=== PATIENT | female | born 1995 | race Hispanic/Latino ===

== ENCOUNTER 2017-11-22 02:36 | Day surgery (SDC) | payer OTHER, SELFPAY ==
[2017-11-22 03:10] VITALS: BP 106/62; TEMP 98.3; BMI 35.0
[2017-11-22 04:16] LABS: Bilirubin Negative (Negative); Blood, Urine Small (Negative); Clarity CLEAR (Clear); Glucose, Urine (Dipstick) Negative (Negative); Leukocyte Negative (Negative); Nitrite Negative (Negative); Protein, Urine (Dipstick) Negative (Neg-Trace); Urobilinogen 0.2 mg/dL (0.2-1.0)
[2017-11-22 04:19] LABS: Bacteria/HPF None Seen HPF (None Seen); Hyaline Casts/LPF 4-6 HYALINE CAST LPF (0-3 Hyaline); Pathc Cast-AUWi Flag 0.81 (0-2.49); Squamous Epithelial 0-3 HPF (0-3); WBC/HPF 0-3 HPF (0-3)
--- NOTE | 2017-11-22 05:10 | SS ---
OB OBSERVATION NOTE DATE OF EVALUATION: 11/22/2017 NORMAL PROVIDER: Anna Eckert, certified nurse authorization representative. CHIEF COMPLAINT: Pelvic pressure, vaginal discomfort. HISTORY OF PRESENT ILLNESS: Ms. Goodson is a 22-year-old G2, P1 estimated date of confine ment 03/05/2018 who presents to labor and delivery early this morning complaining of lower diffuse pe lvic discomfort and the possibility of vaginal discharge. She denies vaginal bleeding. She denies s ustained contractions. She also denies nausea, vomiting, fever or chills. PAST OBSTETRICAL HISTORY: She is currently being cared for by Anna Eckert at [facility]. She reports that her care has been uncomplicated. She has had 1 vaginal delivery at term of a 7-pound 9-ounce baby. PAST MEDICAL HISTORY: Unremarkable. PAST SURGICAL HISTORY: None. SOCIAL HISTORY: Denies tobacco, alcohol, or drug use. ALLERGIES: None. REVIEW OF SYSTEMS: Denies nausea, vomiting, fever or chills. Denies vaginal bleeding. PHYSICAL EXAMINATION: VITAL SIGNS: Stable and she is afebrile. ABDOMEN: Soft and nontender. The fundus extends above the umbilicus and is nontender. Sterile speculum exam is performed and there is a copious discharge consistent with yeast. No blood or amniotic fluid is seen. Sterile vaginal exam shows the cervix to be closed, thickened with the pr esenting part high. heart rate tracing is reassuring with no evidence of decelerations. No co ntractions are seen. LABORATORY DATA: Urinalysis returns with no bacteria on a catheterized specimen. ASSESSMENT: 1. A 25-week intrauterine . 2. No evidence of labor or urinary tract infection. 3. Suspected yeast vaginitis. PLAN: At this time, we will allow the patient to go home and she will rest and continue to hydrate t here. I have asked her to call the clinic and speak with her provider in the morning. I provided a prescription for Diflucan for her to use and she has 1 refill there. She was given complete labor precautions in detail and she voiced understanding of her discharge instructions and was sent h ome in good condition.
== END 2017-11-22 04:30 | disposition home or self-care (01) ==
LOC: L&D/OP 02:36
PROVIDERS: ATTEND Advanced Practice Midwife
DX: O99.89 Other specified diseases and conditions complicating pregnancy, childbirth and the puerperium (principal); R10.2 Pelvic and perineal pain
CPT/HCPCS: 81001

== ENCOUNTER 2017-12-03 16:54 | Emergency (ER) | payer SELFPAY ==
[~2017-12-03 16:54] MED LIST: ISOVUE-370 76%-LOCM 1 ML ONE
[2017-12-03 17:27] LABS: #Eosinphils 0.1 thou/uL (0.0-0.7); #Lymphocytes 1.1 thou/uL (1.20-3.40); #Monocytes 1.2 thou/uL (0.11-0.59); #Neutrophils 9.6 thou/uL (1.40-6.50); %Basophils 0.3 % (0.0-1.0); %Eosinophils 1.2 % (0.0-10.0); %Lymphocytes 9.4 % (21.0-51.0); %Monocytes 9.9 % (0.0-10.0); %Neutrophils 79.2 % (42.0-75.0); Hemoglobin 11.4 g/dL (12.0-16.0); Mean Corpuscular HGB CONC 33.3 g/dL (32.0-36.0); Mean Corpuscular Hemoglobin 28.3 pg (27.0-31.0); Mean Corpuscular Volume 84.8 fl (81.0-99.0); Mean Platelet Volume 7.6 fL (7.4-10.4); Platelet Count 233 thou/uL (130-400); RBC Distribution Width 11.5 % (11.5-14.5); Red Blood Cell (RBC) Count 4.03 mill/uL (4.20-5.40); White Blood Cell (WBC) Count 12.1 thou/uL (4.8-10.8)
[2017-12-03 17:56] LABS: Anion Gap 11 mmol/L (10-20); BUN (Urea Nitrogen) 6 mg/dL (7.0-18.7); Calc. Creatinine Clearance 0 mL/min (70-130); Calcium 9.2 mg/dL (7.8-10.44); Carbon Dioxide 21 mmol/L (22-29); Chloride 108 mmol/L (98-107); Estimated GFR-MDRD Greater than 90; Glucose 110 mg/dL (70-105); Potassium 3.7 mmol/L (3.5-5.1); Sodium 136 mmol/L (136-145)
[2017-12-03] MEDS ORDERED: Acetaminophen 325 MG TAB ONE (18:03)
[2017-12-03 18:46] LABS: Bilirubin Negative (Negative); Blood, Urine Negative (Negative); Clarity TURBID (Clear); Glucose, Urine (Dipstick) Negative (Negative); Leukocyte Negative (Negative); Nitrite Negative (Negative); Protein, Urine (Dipstick) Negative (Neg-Trace); Specific Gravity, Urine 1.016 (1.002-1.036); Urobilinogen 0.2 mg/dL (0.2-1.0); pH, Urine 7.5 (5.0-9.0)
--- NOTE | 2017-12-03 20:45 | CT ---
CT ANGIOGRAM THORAX WITH IV CONTRAST AND 3D RECONSTRUCTIONS: 12/03/17 HISTORY: Cough and racing heart. Headache. Patient is 23 weeks . Positive bodyaches. FINDINGS: There is suboptimal timing of the contrast bolus which limits evaluation of the pulmonary arteries. H owever, there is no definite filling defects seen within the central or segmental pulmonary arteries although there is limited evaluation of the subsegmental pulmonary arteries. Thoracic aorta is normal in caliber without evidence of an aortic dissection. Residual thymus is seen within the anterior sup erior mediastinum. The lungs are clear. The most posterior lung bases are excluded from view. There is no evidence of lymphadenopathy. Limited visualized upper abdomen has a normal CT appearance. IMPRESSION: Limited exam due to suboptimal timing of the contrast bolus, but no definite pulmonary embolus is see n involving the central or segmental pulmonary arteries. Again, the subsegmental pulmonary arteries a re not well opacified. POS: [facility]
== END 2017-12-03 21:23 | disposition home or self-care (01) ==
LOC: ERS 16:54
DX: R00.0 Tachycardia, unspecified (principal); R05 Cough
CPT/HCPCS: 59025; 71275; 80048; 81003; 85025; 85379; 87081; 87430; 93005; 96360; 96361

== ENCOUNTER 2018-02-11 19:11 | Day surgery (SDC) | payer OTHER ==
[2018-02-11 19:48] VITALS: BMI 37.2
[2018-02-11] MEDS ORDERED: Albuterol Sulfate 2.5 mg/3 ml Neb NEB SCH (20:30)
[2018-02-11 21:39] LABS: #Eosinphils 0.2 thou/uL (0.0-0.7); #Monocytes 0.9 thou/uL (0.11-0.59); #Neutrophils 10.1 thou/uL (1.40-6.50); %Basophils 0.3 % (0.0-1.0); %Eosinophils 1.5 % (0.0-10.0); %Lymphocytes 21.1 % (21.0-51.0); %Monocytes 6.5 % (0.0-10.0); %Neutrophils 70.6 % (42.0-75.0); Hemoglobin 11.6 g/dL (12.0-16.0); Mean Corpuscular HGB CONC 34.7 g/dL (32.0-36.0); Mean Corpuscular Hemoglobin 28.5 pg (27.0-31.0); Mean Corpuscular Volume 82.2 fl (81.0-99.0); Mean Platelet Volume 7.3 fL (7.4-10.4); Platelet Count 268 thou/uL (130-400); RBC Distribution Width 12.6 % (11.5-14.5); Red Blood Cell (RBC) Count 4.07 mill/uL (4.20-5.40); White Blood Cell (WBC) Count 14.3 thou/uL (4.8-10.8)
--- NOTE | 2018-02-11 22:37 | RAD ---
CHEST TWO VIEWS: 02/11/18 COMPARISON: 01/16/16. HISTORY: Shortness of breath. FINDINGS: Normal cardiac silhouette. The lungs and pleural spaces are clear. No pneumothorax or osseous abnorma lity. IMPRESSION: No acute cardiopulmonary process. POS: [facility]
--- NOTE | 2018-02-12 00:40 | PRG ---
DATE OF SERVICE: 02/11/2018 PRIMARY OB: Ms. Anna Eckert. CHIEF COMPLAINT: Abdominal pain. HISTORY OF PRESENT ILLNESS: The patient is a 22-year-old female with an intrauterine at 36 weeks who presents today with pelvic pain that she has been experiencing throughout the day. She reports that the pain is sharp and worse with movement and activity. She also reports that she w as last checked at her last clinical exam, she was 1 cm dilated. The patient's next appointment is s idris for Saturday. The patient reports that she has some shortness of breath for the last couple o f weeks. She has also had a bad cough for the last couple of weeks, she says primarily dry, but at t imes has phlegmy discharge or exudate or sputum. The patient reports she has been having sinus press ure, believes that allergies have been a source of this condition. She also reports she has had a lo t of sick contacts in her family who are having similar symptoms. PAST MEDICAL HISTORY: Migraines and depression. PAST OBSTETRIC HISTORY: She had a vaginal complicated by hemorrhage. SOCIAL HISTORY: Denies drug, alcohol or tobacco use. PAST SURGICAL HISTORY: Had wisdom teeth removed. ALLERGIES: No known drug allergies. MEDICATIONS: vitamins. OB LABS: Blood type is O positive, antibody screen is negative, HIV is nonreactive in the first and third trimester. RPR is nonreactive in the first and third trimester. Hepatitis B surface antigen i s nonreactive. One-hour Glucola is within normal limits. She is rubella immune. Her one-hour gluco se tolerance test is 97. GBS is positive. REVIEW OF SYSTEMS: Per HPI. PHYSICAL EXAMINATION: VITAL SIGNS: Blood pressure 116/63, heart rate of 103. Satting 93-98% on room air, temperature 98.8 . GENERAL: She appears to be in no acute distress; however, she does have a cough. She is alert and o riented, cooperative and pleasant to interact with. HEENT: Head is normocephalic, atraumatic. LUNGS: Clear to auscultation bilaterally. HEART: Regular rate and rhythm. ABDOMEN: Tender to deviate to manual deviation consistent with musculoskeletal ligament pains and co nsistent with her chief complaint. EXTREMITIES: Nontender, nonedematous. GENITOURINARY: Cervical exam is unchanged from her clinic visit last Saturday. Her last week at 1 75% , -2 station. heart tracing performed and noted to be in the 140s with moderate long-term variability, positi ve accelerations, no decelerations. Tocometer shows possible irritability, but no contraction patter n. LABORATORY DATA: CBC shows a white count of 14.3, hemoglobin 11.6, hematocrit 33.5, platelets of 265 ,000. Chest x-ray is within normal limits. ASSESSMENT AND PLAN: The patient is a 22-year-old female with a 2-week history of severe cough with unexpectedly low transient O2 sats. She did get an albuterol nebulizer treatment that did not seem t o have much effect. Objectively though the patient reports she feels that she can breathe a little b yudelka. X-rays within normal limits and her white count, although slightly elevated at 14, has no lef t shift. Fetus has a reactive NST and overall reassuring. The patient has had significant sick cont acts at the house given the patient's proximity to delivery and chronic longstanding cough and sinus pressure. I have opted to prescribe the patient azithromycin for the next 5 days. She has been coun seled to see Anna Tomeka this week and has an appointment on Saturday. This patient is being di scharged to home.
== END 2018-02-11 23:08 | disposition home or self-care (01) ==
LOC: L&D/OP 19:11
PROVIDERS: ATTEND Advanced Practice Midwife
DX: O99.89 Other specified diseases and conditions complicating pregnancy, childbirth and the puerperium (principal); R10.2 Pelvic and perineal pain; O99.343 Other mental disorders complicating pregnancy, third trimester; F32.9 Major depressive disorder, single episode, unspecified; O99.353 Diseases of the nervous system complicating pregnancy, third trimester; G43.909 Migraine, unspecified, not intractable, without status migrainosus; Z3A.36 36 weeks gestation of pregnancy; Z79.899 Other long term (current) drug therapy
CPT/HCPCS: 36415; 71046; 85025; 94640; 99283

== ENCOUNTER → 2018-02-14 | Day surgery (SDC) | payer OTHER ==
[2018-02-14 13:26] VITALS: BMI 37.2
--- NOTE | 2018-02-14 14:14 | SS ---
DATE OF SERVICE: 02/14/2018 REGULAR OB PROVIDER: Anna Eckert certified nurse dental nurse. EVALUATING PHYSICIAN: Alirio Ignacio M.D. CHIEF COMPLAINT: Contractions. HISTORY OF PRESENT ILLNESS: Ms. Goodson is a 22-year-old G2, P1-0-0-1, with an estimated date of confinement of 03/05/2018 who presents to Labor and Delivery this afternoon complaining of ut erine contractions since early this morning. She denies vaginal bleeding or rupture of membranes. PAST OBSTETRICAL HISTORY: She is currently being cared for by Anna Eckert CNM at [facility]. Her last exam a week ago, she states she was 1 cm dilated. Her care has been complic ated by a visit 3 days ago in which she had an upper respiratory tract infection for which she is on Zithromax. She states that she is improving. Her last delivery was a vaginal delivery at term of a 7 pound 9 ounce baby. PAST MEDICAL HISTORY: None. PAST SURGICAL HISTORY: None. CURRENT MEDICATIONS: vitamins and Zithromax. SOCIAL HISTORY: She denies tobacco, alcohol, or drug use. FAMILY HISTORY: Unremarkable. ALLERGIES: None. REVIEW OF SYSTEMS: Positive for contractions. She denies nausea, vomiting, fever, chills, vaginal b leeding or rupture of membranes. PHYSICAL EXAMINATION: VITAL SIGNS: Stable and she is afebrile. ABDOMEN: Soft and nontender. Pelvic exam by the labor nurse shows the cervix to be 1 cm dilated, lo ng and posterior. This appears to be unchanged from her previous exam. heart rate tracing is stable. No significant regular contractions are seen. ASSESSMENT: 1. A 37-week intrauterine . 2. No evidence of active labor at this time. PLAN: The patient will be discharged home with precautions. She was urged to follow up with Marlon Eckert CNM in the office and to rest at home now, but to try to get an appointment with her early week. She was given complete labor instructions and she was sent home in good condition.
== END ==
LOC: L&D/OP 12:46 → EDSTATUS 12:52 → L&D/OP 12:53
PROVIDERS: ATTEND Obstetrics & Gynecology
DX: O47.1 False labor at or after 37 completed weeks of gestation (principal); O99.513 Diseases of the respiratory system complicating pregnancy, third trimester; J06.9 Acute upper respiratory infection, unspecified; Z3A.00 Weeks of gestation of pregnancy not specified; Z79.2 Long term (current) use of antibiotics; Z79.899 Other long term (current) drug therapy; Z3A.37 37 weeks gestation of pregnancy

== ENCOUNTER 2018-03-02 05:57 | Day surgery (SDC) | payer OTHER ==
[2018-03-02 06:28] VITALS: BP 86/41; TEMP 98.8; BMI 37.2
[2018-03-02] MEDS ORDERED: Morphine 10 MG/ML VIAL IM SCH (07:00)
--- NOTE | 2018-03-02 08:11 | HP ---
DATE OF SERVICE: 03/02/2018 PRIMARY OB: Ms. Anna Eckert. HISTORY OF PRESENT ILLNESS: The patient is a 22-year-old G2, P1 female with an intrauterine pregnanc y at 39 weeks and 4 days, who is presenting with uterine contractions that she has had since about 2: 00 this morning. She reports that she was seen on Saturday and was about 2 cm dilated. She denies any fever or fall. She denies vaginal bleeding or leakage of fluid. She denies urinary issues. She de nies headache, chest pain, shortness of breath. She has had some nausea, denies new rashes, hip prob lems, knee problems, muscle weakness. PAST MEDICAL HISTORY: Significant for migraines and depression. OBSTETRIC HISTORY: Complicated by hemorrhage. SOCIAL HISTORY: Denies drug, alcohol, or tobacco used. PAST SURGICAL HISTORY: Had wisdom teeth removed. ALLERGIES: No known drug allergies. MEDICATIONS: vitamins. OB LABORATORY DATA: Blood type is O positive, antibody screen is negative. HIV is nonreactive in th e first and third trimester. RPR is nonreactive in the first and third trimester. Hepatitis B surfa ce antigen is nonreactive. One hour Glucola was within normal limits. She is rubella immune. Her o ne hour glucose tolerance test is 97 and she is GBS positive. REVIEW OF SYSTEMS: Per HPI. PHYSICAL EXAMINATION: VITAL SIGNS: Blood pressure 86/41, heart rate of 91, respiratory rate is 16, temperature 98.9. GENERAL: She appears to be in no acute distress. She is alert and oriented, cooperative and pleasan t to interact with. HEENT: Head is normocephalic, atraumatic. LUNGS: Clear to auscultation bilaterally. HEART: Has a regular rate and rhythm. ABDOMEN: A little tender to palpation, but appropriate for gestational age. EXTREMITIES: Nontender, nonedematous. CERVICAL EXAM: Per nursing staff, she is 3, 50 and -2 station. heart tracing performed for threatened labor abdominal pain in . Baseline is noted to be in the 120s with moderate long-term variability, positive accelerations, no decelerations, interp reted by Dr. Camilo. Her contractions visible on the monitor are irregular, but appear to be about every 2-3 minutes with some underlying irritability. ASSESSMENT AND PLAN: The patient is a 22-year-old female here with having uterine contractions. She has made cervical change since last Saturday. We will continue to monitor for the next couple hours. She is asking for her pain medication, we will be giving her 8 mg of morphine IM to help her rest. The fetus has a category 1 tracing and she is GBS positive. If she is unchanged, we will consider di scharge to home. Dr. Ignacio will be evaluating her at that time and determine disposition as we are about to shift change. If she stays, we will contact Ms. Anna Eckert.
--- NOTE | 2018-03-02 08:44 | PDOC.EVN ---
Event Note - Event Note Event Note: Received report with Dr. Camilo. EDC= 03/05/18 seen earlier c/o UCs. Cervix last week was 2 cm. Exam earlier was 3/50/ vtx. Given MS 8 mg IM. Repeat exam by me now remains 3/50/vtx high. FHTs are reassuring w/o decels. UCs q 5-7 mins. Plan: DC home with precautions. Has appt with Deneen Eckert next week. Voices understanding.
== END 2018-03-02 08:45 | disposition home or self-care (01) ==
LOC: L&D/OP 05:57
PROVIDERS: ATTEND Advanced Practice Midwife
DX: O47.1 False labor at or after 37 completed weeks of gestation (principal); Z3A.39 39 weeks gestation of pregnancy; O99.353 Diseases of the nervous system complicating pregnancy, third trimester; G43.909 Migraine, unspecified, not intractable, without status migrainosus; O99.343 Other mental disorders complicating pregnancy, third trimester; F32.9 Major depressive disorder, single episode, unspecified; Z79.899 Other long term (current) drug therapy
CPT/HCPCS: 96372; 99283; J2270

== ENCOUNTER 2018-03-07 17:35 | Inpatient (IN) | payer OTHER ==
[2018-03-07] MEDS ORDERED: Methylergonovine 0.2 MG/ML VIAL IM PRN (17:36)
[2018-03-07] MEDS ORDERED: Promethazine HCl 25 MG/ML VIAL IM PRN (17:36)
[2018-03-07] MEDS ORDERED: Ondansetron HCl/PF 4 MG/2 ML Vial IVP PRN (17:36)
[2018-03-07] MEDS ORDERED: HYDROcodone/Acetaminophen 5/325 mg Tablet PO PRN ×2 (17:36)
[2018-03-07] MEDS ORDERED: Butorphanol Tartrate 1 MG/ML VIAL SLOW IVP PRN (17:36)
[2018-03-07] MEDS ORDERED: Misoprostol 200 MCG TAB PR PRN (17:36)
[2018-03-07] MEDS ORDERED: Ibuprofen 800 MG TAB PO PRN (17:36)
[2018-03-07] MEDS ORDERED: NS / Oxytocin 40 units/1000ml 1,000 ML IV PRN (17:36)
[2018-03-07] MEDS ORDERED: Lidocaine 1% (PF) 30 ML VIAL SC PRN (17:36)
[2018-03-07] MEDS ORDERED: Penicillin G Potassium 5 MILL.UNITS in Sodium Chloride 0.9% 100 ML IVPB SCH (17:45)
[2018-03-07] MEDS ORDERED: NS w/ Oxytocin 10 units 500 ML IV SCH (17:45)
[2018-03-07] MEDS: Lactated Ringer's 1,000 ML IV SCH ×2 (19:13→22:59)
[2018-03-07 19:26] LABS: Hemoglobin 11.9 g/dL (12.0-16.0); Mean Corpuscular HGB CONC 34.3 g/dL (32.0-36.0); Mean Corpuscular Hemoglobin 28.3 pg (27.0-31.0); Mean Corpuscular Volume 82.7 fl (81.0-99.0); Mean Platelet Volume 8.3 fL (7.4-10.4); Platelet Count 261 thou/uL (130-400); RBC Distribution Width 13.6 % (11.5-14.5); Red Blood Cell (RBC) Count 4.21 mill/uL (4.20-5.40); White Blood Cell (WBC) Count 10.5 thou/uL (4.8-10.8)
[2018-03-07 19:32] VITALS: BMI 37.5
[2018-03-07 20:11] LABS: Syphilis Antibody Nonreactive (Nonreactive); Syphilis Antibody Index 0.05 S/CO (<1.00 Non-Reactive)
[2018-03-07 20:12] LABS: HBSAg Index 0.44 S/CO (0-0.99); Hep B Surf Ag Non-Reactive S/CO (NonReactive)
[2018-03-07] MEDS ORDERED: Bupivacaine 0.5% 20 ML, fentaNYL Citrate/PF 400 MCG in Sodium Chloride 0.9% 72 ML EPIDURAL SCH (22:45)
[2018-03-07] MEDS ORDERED: Lactated Ringer's 500 ML IV PRN (23:22)
[2018-03-07] MEDS ORDERED: Eucerin (Mineral Oil/Petrolatum,White) 30 gm Jar TOP PRN (23:22)
[2018-03-07] MEDS ORDERED: ePHEDrine/0.9% NaCl/PF SYRINGE 50 mg/10 ml SLOW IVP PRN (23:22)
[2018-03-07] MEDS ORDERED: Naloxone HCl 0.4 mg/ml Vial IVP PRN (23:22)
[2018-03-07] MEDS ORDERED: Communication Order-Pharmacy FS SCH (23:30)
[2018-03-07] MEDS ORDERED: Fentanyl 4mcg/Marcaine 0.1% Cassette 100 ML EPIDURAL SCH (23:30)
[2018-03-08] MEDS: Penicillin G 2.5 MILL.units 2.5 MILL.UNITS in Premix Bag 1 BAG IVPB SCH ×3 (01:16→06:50)
[2018-03-08] MEDS ORDERED: NS / Oxytocin 40 units/1000ml 1,000 ML ONE (04:00)
[2018-03-08] MEDS ORDERED: NS / Oxytocin 40 units/1000ml 0 ML ONE (04:00)
[2018-03-08] MEDS ORDERED: Misoprostol 200 MCG TAB ONE (05:00)
--- NOTE | 2018-03-08 05:48 | PDOC.LDHP ---
Labor and Delivery H&P Chief complaint: other (medically indicated IOL for 4/8 BPP and decreased movement) HPI: Pt sent from clinic fro decreased movement Current gestational age (weeks): 40 Due date: 03/05/18 Dating criteria: last menstrual period, first trimester ultrasound (verified at 10w6d) Grav: 2 Para: 1 (7.9) OB History Details: G1 - 7.9 with complicated by PPH Current complications: other (anemia) Abnormal US findings: No Past Medical History: depression, anemia, chlamydia 2010 Current medications: pre-daily vitamins, iron Previous surgical history: other (wisdom teeth 2014) Allergies/Adverse Reactions: Allergies Allergy/AdvReac Type Severity Reaction Status Date / Time No Known Allergies Allergy Verified 03/07/18 19:32 - Physical Exam Vital signs reviewed and normal: yes General: breathing through contractions Heart: RRR Lungs: nonlabored breathing Abdomen: gravid Extremeties: pitting edema FHT: category 1 - Vaginal Exam cm dilated: 4 Effacement: 75% Station: -3 - OB Labs Blood type: O RH: positive Antibody Screen: negative HIV: negative RPR: negative HEPSAg: negative 1 hour GCT: negative GBS: positive Urine drug screen: not done Rubella: immune - Assessment L&D Assessment: medically indicated induction - Plan Plan: admit to L&D (AROM and Pitocin), GBS antibiotic prophylaxis -: anticipate anticipate PPH
--- NOTE | 2018-03-08 05:54 | PDOC.OPDEL ---
OB Operative/Delivery Note Delivery Dr/Surgeon: Tomeka Pre-Delivery Diagnosis: active labor, medically indicated induction Procedure/Post Delivery Dx: spontaneous vaginal delivery Weeks gestation: 40 Anesthesia: epidural - Findings A Sex: male - 1 min: 8 - 5 min: 9 - Additional Findings/Plan Placenta delivered: spontaneous Repaired Obstetrical Laceration: none Estimated blood loss: 400 Post delivery plan: routine recovery (with arroyo)
[2018-03-08] MEDS ORDERED: Methylergonovine 0.2 MG/ML VIAL IM PRN (08:35)
[2018-03-08] MEDS ORDERED: Lanolin Ointment 7 GM TUBE TOP PRN (08:35)
[2018-03-08] MEDS ORDERED: Bisacodyl 10 MG SUPP PR PRN (08:35)
[2018-03-08] MEDS ORDERED: Benzocaine/Menthol 20-0.5% 60 ML CAN TOP PRN (08:35)
[2018-03-08] MEDS ORDERED: Ondansetron HCl/PF 4 MG/2 ML Vial IVP PRN (08:35)
[2018-03-08] MEDS ORDERED: Measles/Mumps/Rubella 10 MCG/0.5 ML VIAL SC ONE (08:35)
[2018-03-08] MEDS ORDERED: Misoprostol 200 MCG TAB VAG SCH (08:35)
[2018-03-08] MEDS ORDERED: Varicella virus, LIVE 0.5 ML VIAL SC ONE (08:35)
[2018-03-08] MEDS ORDERED: Adacel (T-DAP) 0.5 ML VIAL IM ONE (08:35)
[2018-03-08] MEDS ORDERED: NS / Oxytocin 40 units/1000ml 1,000 ML IV SCH (08:35)
[2018-03-08] MEDS ORDERED: Milk Of Magnesia 30 ML UDCUP PO PRN (08:35)
[2018-03-08] MEDS ORDERED: Acetaminophen/Codeine 30-300mg Tablet PO PRN ×2 (08:35)
[2018-03-08] MEDS ORDERED: Ferrous Sulfate 325 MG TAB PO SCH (09:45)
[2018-03-08] MEDS: Prenatal Vitamin 1 TAB PO SCH (09:59)
[2018-03-08] MEDS: Docusate Calcium (SURFAK) 240 MG CAP PO SCH ×2 (09:59→21:42)
[2018-03-08] MEDS: Ibuprofen 800 MG TAB PO SCH ×2 (14:38→21:42)
[2018-03-08] MEDS: Ferrous Sulfate 325 MG TAB PO SCH (21:42)
[2018-03-09 05:43] LABS: Hemoglobin 10.4 g/dL (12.0-16.0); Mean Corpuscular HGB CONC 32.2 g/dL (32.0-36.0); Mean Corpuscular Hemoglobin 27.3 pg (27.0-31.0); Mean Corpuscular Volume 84.7 fl (81.0-99.0); Mean Platelet Volume 7.7 fL (7.4-10.4); Platelet Count 243 thou/uL (130-400); RBC Distribution Width 13.7 % (11.5-14.5); Red Blood Cell (RBC) Count 3.81 mill/uL (4.20-5.40); White Blood Cell (WBC) Count 15.4 thou/uL (4.8-10.8)
[2018-03-09] MEDS: Ibuprofen 800 MG TAB PO SCH ×2 (06:11→14:43)
[2018-03-09] MEDS: Ferrous Sulfate 325 MG TAB PO SCH (08:20)
[2018-03-09 08:45] VITALS: BP 114/65; TEMP 98.6
[2018-03-09] MEDS: Docusate Calcium (SURFAK) 240 MG CAP PO SCH (09:38)
[2018-03-09] MEDS: Prenatal Vitamin 1 TAB PO SCH (09:38)
--- NOTE | 2018-03-09 16:52 | PDOC.PP ---
Post Progress Note Post Day #: 1 Subjective: Doing well PO intake tolerated: yes Flatus: yes Ambulation: yes Vital Signs (12 hours) Temp Pulse Resp BP Pulse Ox 03/09/18 08:20 98.6 F 81 18 03/09/18 08:00 98.6 F 81 18 114/65 98 Weight Weight 212 lb - Physical Examination Cardiovascular: no m/r/g Respiratory: clear to auscultation bilaterally Abdominal: + bowel sounds Extremities: negative homans (B) Neurological: no gross focal deficits Psychiatric: A&Ox3 Result Diagrams: 03/09/18 05:12 Additional Labs: Post Labs Blood Type O POSITIVE 03/07/18 19:15 Hep Bs Antigen Non-Reactive S/CO (NonReactive) 03/07/18 19:15 (1) Vaginal delivery Code(s): O80 - ENCOUNTER FOR FULL-TERM UNCOMPLICATED DELIVERY Status: Acute - Assessment/Plan Doing well at 24 hours postpatum. patient requests to go home today. OK for discharge. I was asked by Deneen Eckert to see the patient. Cleared for discharge by me.
== END 2018-03-09 17:49 | disposition home or self-care (01) | DRG 775 ==
LOC: L&D 17:35 → 3SW 03-08 08:33
PROVIDERS: ADMIT Obstetrics & Gynecology; ATTEND Obstetrics & Gynecology
PROC: 10E0XZZ Delivery of Products of Conception, External Approach (ICD-10-PCS; principal; 2018-03-08)
PROC: 3E033VJ Introduction of Other Hormone into Peripheral Vein, Percutaneous Approach (ICD-10-PCS; 2018-03-08)
DX: O36.8130 Decreased fetal movements, third trimester, not applicable or unspecified (principal); O99.02 Anemia complicating childbirth; Z3A.40 40 weeks gestation of pregnancy; Z37.0 Single live birth
CPT/HCPCS: 36415; 51702; 85027; 86780; 86850; 86900; 86901; 87340; 99285; J0595; J2001; J2540; J3010; J3490; J7050